=== PATIENT | male | born 1965 | race Two or more races ===

== ENCOUNTER → 2017-08-31 | Day surgery (SDC) | payer BC ==
[~2017-08-31] MED LIST: ASPI1TAB7 PO; CLOP75TA PO; EZET10 PO; GLYB5TAB3 PO; ISOS30 PO; LACTATED RINGER'S 1000 ML INJ 1,000 ML ONE; METF1000 PO; METO25 PO; NITR0.4S SL; PROPOFOL 500 MG/50 ML BTL IV ONE; SIMV40TA PO
--- NOTE | 2017-08-31 09:17 | GIPROC ---
[facility] [address] [place], [address] COLONOSCOPY PROCEDURE REPORT EXAM DATE: 08/31/2017 PATIENT NAME: Ras Foss MR #: [id number] BIRTHDATE: 1965 ENDOSCOPIST: Isreal Gary MD ORDER #: [id number] [employer]OD [employer]EVER[employer] SERVER: Nawaf Campbell RN STATUS: outpatient INDICATIONS: The patient is a 52 yr old male here for a colonoscopy due to average risk patient for colon cancer PROCEDURE PERFORMED: Colonoscopy, screening MEDICATIONS: None, Per Anesthesia, None, and Per Anesthesia. PREP QUALITY: excellent ESTIMATED BLOOD LOSS: None CONSENT: The patient understands the risks and benefits of the procedure and understands that these risks include, but are not limited to: sedation, allergic reaction, infection, perforation and/or bleeding. Alternative means of evaluation and treatment include, among others: physical exam, x-rays, and/or surgical intervention. The patient elects to proceed with this endoscopic procedure. medical equipment was checked for proper function. Hand hygiene and appropriate measures for infection prevention was taken. After the risks, benefits and alternatives of the procedure were thoroughly explained, Informed consent was verified, confirmed and timeout was successfully executed by the treatment team. A digital exam revealed no abnormalities of the rectum The EC-[id number] ([id number]) endoscope was introduced through the anus and advanced to the cecum, which was identified by both the appendix and ileocecal valve. The instrument was then slowly withdrawn as the colon was fully examined. COLON FINDINGS: The colonic mucosa appeared normal. Retroflexed views revealed no abnormalities The scope was then completely withdrawn from the patient and the procedure terminated. PROCEDURE WITHDRAWAL TIME:9.1minutes ADVERSE EVENTS: There were no complications. IMPRESSIONS: 1. The colonic mucosa appeared normal 2. Retroflexed views revealed no abnormalities 3. Revealed no abnormalities of the rectum RECOMMENDATIONS: 1. High fiber diet 2. Yearly hemoccult 3. Follow-up: GI Clinic PRN RECALL: Return 5 years Colonoscopy Isreal Gary MD eSigned: Isreal Gary MD 08/31/2017 9:17 AM cc: vickie duque M.D and Ajay Sherman [facility] [place]
== END | disposition home or self-care (01) ==
LOC: ESDC 07:06
PROVIDERS: ATTEND Internal Medicine Gastroenterology
DX: Z12.11 Encounter for screening for malignant neoplasm of colon (principal)
CPT/HCPCS: 00810; 45378; J7120